=== PATIENT | female | born 1930 | race Caucasian/White ===

== ENCOUNTER 2021-10-15 11:09 | Emergency (ER) | payer OTHER ==
[2021-10-15 11:24] VITALS: BP 147/100; PULSE 72; TEMP 98.7; BMI 24.7
[2021-10-15] MEDS ORDERED: DIPHTH,PERTUSS(ACELL),TET 0.5 ML DISP.SYRIN IM ONE ×2 (12:09→12:38)
== END 2021-10-15 13:35 | disposition home or self-care (01) ==
LOC: FER 11:09
PROC: 3E0234Z Introduction of Serum, Toxoid and Vaccine into Muscle, Percutaneous Approach (ICD-10-PCS; principal; 2021-10-15)
DX: S09.90XA Unspecified injury of head, initial encounter (principal); W01.0XXA Fall on same level from slipping, tripping and stumbling without subsequent striking against object, initial encounter
CPT/HCPCS: 70450-TC; 72125-TC; 73030-TC-RT-FY; 73060-TC-RT-FY; 73070-TC-RT-FY; 90471; 90715; 99284-25